=== PATIENT | male | born 1960 ===

== ENCOUNTER 2018-05-15 20:40 | Emergency (ER) | payer BC ==
[2018-05-15 20:43] VITALS: BMI 27.1
[2018-05-15 20:52] VITALS: RESP 18; TEMP 98.4; O2SAT 98
--- NOTE | 2018-05-15 20:57 | ED PDOC ---
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 Pt is a poor historian, and is present with his sister (Alexandrea Mir). Chest pain is described as midsternal, sharp, lasting 4-5 minutes, nonradiating. Pt states that he has been having this pain intermittently for the past 3 weeks or so. It bothers him when he sleeps, worse when laying on the left side and better when laying on the right side. Denies fever, chills, sob, abdominal pain, n/v/d, numbness or tingling, leg pain or swelling, recent illness. Denies long car rides, airplane trips, recent travel. 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 (+) history drug use in [place] past including IVDA, but states that he hasn't used and illicit drugs in many years Time/Duration: Prior to Arrival (1 hour prior to arrival) Symptom Course: Intermittent Quality: Unable to Describe Severity Level: 8 <Yomi Dwyer - Last Filed: 05/16/18 03:47> - General Chief Complaint: Chest Pain Time Seen by Provider: 05/15/18 20:44 Past Medical History - Provider Review Nursing Documentation Reviewed: Yes - Infectious Disease Hx of Infectious Diseases: None - Cardiac Hx Cardiac Disorders: No - Pulmonary Hx Respiratory Disorders: No - Hematological/Oncological Hx Hepatitis C: Yes Other/Comment: polio - Psychiatric Hx Substance Use: No - Anesthesia Hx Anesthesia: No <Yomi Dwyer - Last Filed: 05/16/18 03:47> Family/Social History - Physician Review Nursing Documentation Reviewed: Yes Family/Social History: Diabetes, Hypertension Smoking Status: Never Smoked Hx Alcohol Use: Yes Frequency of alcohol use: Few days per week Hx Substance Use: No <Yomi Dwyer - Last Filed: 05/16/18 03:47> Allergies/Home Meds <Mg Maynard - Last Filed: 05/16/18 03:31> <Yomi Dwyer - Last Filed: 05/16/18 03:47> Allergies/Adverse Reactions: Allergies No Known Allergies Allergy (Verified 05/15/18 20:46) Home Medications: Home Meds Medication Instructions Recorded Confirmed No Known Home Med 05/15/18 05/15/18 Review of Systems - Review of Systems Constitutional: Normal Eyes: Normal ENT: Normal Respiratory: Normal Cardiovascular: Chest Pain Gastrointestinal: Normal Skin: Normal Neurological: Dizziness, Other (near syncope) <Yomi Dwyer Last Filed: 05/16/18 03:47> Physical Exam Vital Signs Temp Pulse Resp BP Pulse Ox 05/15/18 23:04 99 H 18 156/95 H 98 05/15/18 20:50 98.4 F 107 H 18 139/95 H 98 <Mg Maynard - Last Filed: 05/16/18 03:31> Vital Signs Temp Pulse Resp BP Pulse Ox 05/15/18 20:50 98.4 F 107 H 18 139/95 H 98 Temperature: Afebrile Blood Pressure: Hypertensive Pulse: Tachycardic Respiratory Rate: Normal Appearance: Positive for: Other (intoxicated, smells of alcohol and admits to drinking "too much" tonight) Pain Distress: None Mental Status: Positive for: Alert and Oriented X 3 - Systems Exam Head: Present: Atraumatic, Normocephalic Pupils: Present: PERRL Extroacular Muscles: Present: EOMI Conjunctiva: Present: Normal Mouth: Present: Moist Mucous Membranes Neck: Present: Normal Range of Motion Respiratory/Chest: Present: Rhonchi. No: Respiratory Distress, Accessory Muscle Use, Wheezes, Rales, Retracting Cardiovascular: Present: Normal S1, S2, Tachycardic Abdomen: Present: Distention, Normal Bowel Sounds. No: Tenderness, Rebound, Guarding Back: Present: Normal Inspection Upper Extremity: Present: Normal Inspection, NORMAL PULSES, Capillary Refill < 2s Lower Extremity: Present: Normal Inspection, NORMAL PULSES, Capillary Refill < 2 s. No: Edema, CALF TENDERNESS, Tenderness Neurological: Present: GCS=15, CN II-XII Intact, Motor Func Grossly Intact (4/5 left upper extremity ext and flex, and 4/5 left lower extremity dorsiflexion) Skin: Present: Warm, Dry Psychiatric: Present: Alert, Oriented x 3, Intoxicated <Yomi Dwyer - Last Filed: 05/16/18 03:47> Medical Decision Making ED Course and Treatment: 05/16/18 21:50 57 y/o M presenting to the emergency department complaining of chest pain and near syncopal episode. In agreement with resident note, which includes further HPI details. Patient was seen and evaluated with resident, came up with plan and treatment together. - Lab Interpretations Lab Results: 05/15/18 20:59 05/15/18 20:59 Lab Results 05/15/18 20:59: Sodium 144, Potassium 3.9, Chloride 107, Carbon Dioxide 25, Anion Gap 16, BUN 8, Creatinine 0.7 L, Est GFR ( Amer) > 60, Est GFR (Non-Af Amer) > 60, Random Glucose 104, Calcium 9.0, Phosphorus 3.7, Magnesium 2.3 H, Total Bilirubin 0.3, AST 59, ALT 55, Alkaline Phosphatase 84, Troponin I < 0.01, Total Protein 7.9, Albumin 4.7, Globulin 3.3, Albumin/Globulin Ratio 1.4 05/15/18 20:59: WBC 6.2, RBC 5.15, Hgb 16.5, Hct 47.5, MCV 92.2, MCH 32.0, MCHC 34.7, RDW 13.0, Plt Count 217, MPV 10.1, Gran % 59.8, Lymph % (Auto) 30.2, [place] % (Auto) 7.6 H, Eos % (Auto) 2.1, Baso % (Auto) 0.3, Gran # 3.70, Lymph # (Auto) 1.9, [place] # (Auto) 0.5, Eos # (Auto) 0.1, Baso # (Auto) 0.02 - RAD Interpretation Radiology Orders: 05/15/18 21:21 CXR [CHEST PORTABLE] [RAD] Stat - Medication Orders Current Medication Orders: Discontinued Medications Sodium Chloride (Sodium Chloride 0.9%) 1,000 mls @ 999 mls/hr IV .Q1H1M STA Stop: 05/15/18 22:21 Last Admin: 05/15/18 21:31 Dose: 999 mls/hr eMAR Start Stop Document 05/15/18 21:31 CNR (Rec: 05/15/18 21:31 CNR [id number]) Intravenous Solution Start Date 05/15/18 Start Time 21:31 End Date 05/15/18 End time 22:31 Total Infusion Time 60 <Mg Maynard - Last Filed: 05/16/18 03:31> ED Course and Treatment: 57 year old male with near syncope and chest pain lasting 4-5 minutes, which resolved prior to arrival. EKG, CXR, troponin, CBC, CMP - RAD Interpretation Narrative RAD Interpretations (Text): CXR shows no active disease; as read by ED attending Accounts Receivable Assistant: ED Physician - EKG Interpretation EKG Interpretation (Text): EKG shows sinus tachycardia at 105, no acute STTW changes; OH is 132, QTc is 454; as read by ED attending Interpreted by ED Physician: Yes <Yomi Dwyer - Last Filed: 05/16/18 03:47> - PA / CLOTHING SORTER / Resident Statement MD/ has reviewed & agrees with the documentation as recorded. MD/DO has examined the patient and agrees with the treatment plan. - Scribe Statement The provider has reviewed the documentation as recorded by the Brenda Hanley All medical record entries made by the Brenda were at my direction and personally dictated by me. I have reviewed the chart and agree that the record accurately reflects my personal performance of the history, physical exam, medical decision making, and the department course for this patient. I have also personally directed, reviewed, and agree with the discharge instructions and disposition. <Mg Maynard - Last Filed: 05/16/18 03:31> Disposition/Present on Arrival <ManuellauraMg - Last Filed: 05/16/18 03:31> - Present on Arrival Any Indicators Present on Arrival: No History of DVT/PE: No History of Uncontrolled Diabetes: No Urinary Catheter: No History of Decub. Ulcer: No History Surgical Site Infection Following: None - Disposition Have Diagnosis and Disposition been Completed?: Yes Disposition Time: 22:58 <Yomi Dwyer - Last Filed: 05/16/18 03:47> - Disposition Diagnosis: Chest pain Disposition: HOME/ ROUTINE Condition: GOOD Discharge Instructions (ExitCare): Chest Pain (ED) Referrals: Davi Redd MD [Staff Provider] - Follow up with primary [facility] [place] [Outside] - Follow up with primary Forms: [employer] (Uzbek)
[2018-05-15] MEDS ORDERED: Sodium Chloride 0.9% 1,000 ML IV STA (21:21)
[2018-05-15 21:39] LABS: BASO # 0.02 K/mm3 (0.0-2.0); BASO % 0.3 % (0.0-3.0); EOS # 0.1 (0.0-0.7); EOS % 2.1 % (1.5-5.0); GRAN # 3.7 (1.4-6.5); GRAN % 59.8 % (50.0-68.0); HEMOGLOBIN 16.5 g/dL (14.0-18.0); LYMPH # 1.9 (1.2-3.4); LYMPH % 30.2 % (22.0-35.0); MEAN CELL VOLUME 92.2 fl (80.0-105.0); MEAN CORPUSCULAR HGB CONC 34.7 g/dl (31.0-37.0); MEAN PLATELET VOLUME 10.1 fl (7.0-11.0); MONO # 0.5 (0.1-0.6); MONO % 7.6 % (1.0-6.0); RBC 5.15 10^6/uL (3.5-6.1); WHITE BLOOD COUNT 6.2 10^3/uL (4.5-11.0)
[2018-05-15 21:44] LABS: ALB/GLOB RATIO 1.4 (1.1-1.8); ALBUMIN 4.7 g/dL (3.0-4.8); ALT/SGPT 55 U/L (7-56); AST/SGOT 59 U/L (17-59); BLOOD UREA NITROGEN 8 mg/dL (7-21); GFR NON-AFRICAN AMERICAN > 60
[2018-05-15 21:56] LABS: TROPONIN I < 0.01 ng/mL
[2018-05-15 23:04] VITALS: BP 156/95; PULSE 99
[2018-05-15] MEDS ORDERED: Succinylcholine 200 mg/10 ml Inj IV ONE (23:31)
[2018-05-15] MEDS ORDERED: Etomidate 20 mg/10ml Inj IV ONE (23:31)
--- NOTE | 2018-05-16 09:24 | RAD ---
Date of service: 05/15/2018 HISTORY: chest pain COMPARISON: No prior. FINDINGS: LUNGS: No active pulmonary disease. PLEURA: No significant pleural effusion identified, no pneumothorax apparent. CARDIOVASCULAR: No aortic atherosclerotic calcification present. Normal cardiac size. No pulmonary vascular congestion. OSSEOUS STRUCTURES: No significant abnormalities. VISUALIZED UPPER ABDOMEN: Normal. OTHER FINDINGS: None. IMPRESSION: No active disease.
--- NOTE | 2018-05-16 10:28 | CARD ---
APPROVED REPORT Date of service: 05/15/2018 EKG Measurement Heart [id number] <Conclusion> Sinus tachycardia
== END 2018-05-15 23:06 | disposition home or self-care (01) ==
LOC: ED 20:40
DX: R07.9 Chest pain, unspecified (principal); M62.81 Muscle weakness (generalized); B19.20 Unspecified viral hepatitis C without hepatic coma; Z82.49 Family history of ischemic heart disease and other diseases of the circulatory system; Z83.3 Family history of diabetes mellitus
CPT/HCPCS: 71045; 80053; 83735; 84100; 84484; 85025; 93005; 96360; 99283; J7030